=== PATIENT | female | born 1935 | race Caucasian/White ===

== ENCOUNTER → 2016-09-29 | Outpatient (CLI) | payer MEDICARE | END | disposition home or self-care (01) | LOC: PCVCCLINIC 14:57 | PROVIDERS: ATTEND Internal Medicine | DX: I25.10 Atherosclerotic heart disease of native coronary artery without angina pectoris (principal); I42.9 Cardiomyopathy, unspecified; E78.5 Hyperlipidemia, unspecified; I10 Essential (primary) hypertension; I65.29 Occlusion and stenosis of unspecified carotid artery; I47.2 Ventricular tachycardia; I44.7 Left bundle-branch block, unspecified; I48.0 Paroxysmal atrial fibrillation; Z95.810 Presence of automatic (implantable) cardiac defibrillator | CPT/HCPCS: 80061; 93005; G0463 ==

== ENCOUNTER → 2017-05-12 | Outpatient (CLI) | payer MEDICARE ==
[~2017-05-12] MED LIST: NITROGLYCERIN SUBLINGUAL 0.4 MG BOTTLE OF 25. SL ONE; REGADENOSON 0.4 MG/5 ML DISP.SYRIN. IV ONE
--- NOTE | 2017-05-16 09:33 | PCVCIMAG ---
APPROVED REPORT Exam: Nuclear Stress Test Indication: CAD , Dyspnea, Dyspnea upon Exertion, Paroxysmal Atrial Fibrillation, Cardiomyopathy, LBBB Patient Location: Out-Patient Stress Nurse: Soledad Yu RN, Afshan Taylor RN NM Tech:Sue ArzateJANELL stubbsMT Ht: 5 ft 4 in Wt: 135 lbs BSA: 1.66 m2 HR: 82 bpm BP: 192/81 mmHg BMI: 23.1 Rhythm: Pacemaker Medical History Medical History: HTN, CVD, CAD, AGE Medications: Coreg (held 24 hours) ASA, Lasix, Lipitor, Plavix, Protonix, Synthroid Allergies: Iodine Pretest Chest Pain Characteristics: No chest pain NM EXAM: Myocardial Perfusion REST/STRESS Imaging Protocol: Rest Tc-99m/Stress Tc-99m 1 day Resting Data Rest SPECT myocardial perfusion imaging was performed in supine position 45 minutes following the intravenous injection of 7.1 mCi of Tc-99m Sestamibi. Time of rest injection: 1045 Date: 05/12/2017 Administration Route: IV Administration Site: Right AC Pharmacologic Stress Pharmacologic stress test was performed by injecting Regadenoson 0.4 mg IV push followed by the intravenous injection of 24.3 mCi of Tc-99m Sestamibi. Time of stress injection: 1215 Date: 05/12/2017 Administration Route: IV Administration Site: Right AC Gated Stress SPECT was performed 45 minutes after stress injection. The images were gated to evaluate regional wall motion and calculate left ventricular ejection fraction. Study Quality Study: Good Study Data Post stress, the left ventricular ejection was 60%.. SSS: 0 SRS: 4 SDS: 0 TID = 0.89. Perfusion No evidence of stress induced ischemia or prior myocardial infarction. Wall Motion Normal left ventricular size and function with no regional wall motion abnormalities. Nuclear Conclusion No evidence of stress induced ischemia or prior myocardial infarction. Normal left ventricular size and function with no regional wall motion abnormalities. Post stress, the left ventricular ejection was 60%.. No prior study available for comparison. Interpreted by: Galileo David MD Electronically Approved: 05/12/2017 16:33:50 Stress Test Details Stress Test: Pharmacologic stress testing performed using 0.4 mg of regadenoson per 5 mL given IV over 10 seconds. Reason for pharmacologic stress test: physical limitation. HR Resting HR: 82 bpmMax Heart Rate (APMHR): 139 bpm Max HR Achieved: 108 bpmTarget HR (85% APMHR): 118 bpm % of APMHR: 77 Recovery HR: 104 bpm BP Resting BP: 192/81 mmHg Max BP: 199/91 mmHg BP response to stress: Coreg held this am, patient took home dose after stress test ECG Resting ECG: Paced Rhythm Stress ECG: Paced Rhythm Arrhythmia: None Recovery ECG: Paced Rhythm Clinical Reason for Termination: Completed protocol Stress Symptoms: Dyspnea, Nausea Exercise duration: 0 min 55 sec Exercise capacity: 1.0 METs Angina Score: None Symptoms resolved during recovery. Stress ECG Conclusion Non-diagnostic stress due to underlying ventricular pacing. <Conclusion> Non-diagnostic stress due to underlying ventricular pacing.
== END | disposition home or self-care (01) ==
LOC: PCVCIMAG 10:02
PROVIDERS: ATTEND Internal Medicine
DX: I25.10 Atherosclerotic heart disease of native coronary artery without angina pectoris (principal); I48.0 Paroxysmal atrial fibrillation; I42.9 Cardiomyopathy, unspecified; I44.7 Left bundle-branch block, unspecified; K52.9 Noninfective gastroenteritis and colitis, unspecified; Z86.73 Personal history of transient ischemic attack (TIA), and cerebral infarction without residual deficits
CPT/HCPCS: 78452; 93017; A9500; J2785

== ENCOUNTER → 2017-05-17 | Outpatient (CLI) | payer MEDICARE ==
--- NOTE | 2017-05-17 15:36 | PCVCIMAG ---
APPROVED REPORT Indications Stenosis Risk Factors Hypertension: Hyperlipidemia Doppler Spectral Velocity Analysis PSV / EDVPSV / EDV ECA (R) 63 / 6 cm/sECA (L) 83 / 8 cm/s dICA (R) 78 / 21 cm/sdICA (L) 85 / 30 cm/s Lynne (R) 58 / 19 cm/smICA (L) 43 / 15 cm/s pICA (R) 56 / 13 cm/spICA (L) 52 / 12 cm/s Bulb (R) 47 / 12 cm/sBulb (L) 50 / 10 cm/s dCCA (R) 57 / 12 cm/sdCCA (L) 72 / 19 cm/s mCCA (R) 53 / 13 cm/smCCA (L) 87 / 14 cm/s Vert (R) 49 / 13 cm/sVert (L) 54 / 13 cm/s ICA/CCA 1.37 ICA/CCA 0.99 Basic Measurements Blood Pressure: Pulses: Right Left RightLeft Brachial(Sitting) 136/98pbWb889/86mmHgTemporal Real Time B-Mode Imaging Vert. (R)AntegradeVert. (L)Antegrade Findings The right carotid bulb has moderate calcified plaque. The right proximal internal carotid artery shows <40% stenosis. The right common carotid artery shows no significant stenosis. The right external carotid artery shows no significant stenosis. The left carotid bulb has mild plaque. The left proximal internal carotid artery shows no significant stenosis. The left common carotid artery shows no significant stenosis. The left external carotid artery shows no significant stenosis. Conclusion 1. Right internal carotid artery stenosis (<40%) 2. Left internal carotid plaquing 3. Antegrade vertebral flow
--- NOTE | 2017-05-17 16:45 | PCVCIMAG ---
APPROVED REPORT Study performed: 05/17/2017 14:45:21 EXAM: Comprehensive 2D, Doppler, and color-flow Echocardiogram Patient Location: Echo lab Status: routine BSA: 1.68 HR: 71 bpmBP: 138/86 mmHg Rhythm: LBBB Other Information Study Quality: Adequate Indications Abnormal ECG Pacemaker CAD Cardiomyopathy S/P STENTS, NOMISCHEMIC CARDIOMYOPATHY, DEFIBRILLATOR PM 2D Dimensions LVEF(%): 61.80 (>50%) IVSd: 11.14 (7-11mm)LVOT Diam: 20.45 (18-24mm) LVDd: 42.67 mm PWd: 11.09 (7-11mm)Ascending Ao: 31.77 (22-36mm) LVDs: 28.61 (25-40mm) Left Atrium: 29.09 (27-40mm) Aortic Root: 24.86 mm LV Single Plane 4CH: 44.30 % LV Single Plane 2CH: 53.08 %Mercer's LVEF: 48.69 % Biplane EF: 48.9 % Volumes Left Atrial Volume (Systole) Single Plane 4CH: 34.31 mLSingle Plane 2CH: 35.26 mL Biplane LA Volume: 37.00 mLLA ESV Index: 22.00 mL/m2 Aortic Valve AoV Peak Juanpablo.: 1.34 m/s AO Peak Gr.: 7.23 mmHgLVOT Max P.22 mmHg LVOT Max V: 0.95 m/s DICK Vmax: 2.34 cm2 Mitral Valve E/A Ratio: 0.8 MV Decel. Time: 121.02 ms MV E Max Juanpablo.: 0.70 m/s MV A Juanpablo.: 0.86 m/s IVRT: 107.27 ms TDI E/Lateral E': 14.00E/Medial E': 17.50 Medial E' Juanpablo.: 0.04 m/s Lateral E' Juanpablo.: 0.05 m/s Pulmonary Valve PV Peak Juanpablo.: 1.11 m/sPV Peak Gr.: 4.94 mmHg Pulmonary Vein P Vein S: 0.40 m/sP Vein A: 0.35 m/s P Vein D: 0.27 m/sP Vein A Dur.: 86.5 msec P Vein S/D Ratio: 1.48 Tricuspid Valve TR Peak Juanpablo.: 2.43 m/s TR Peak Gr.: 23.65 mmHg TV Vmax: 0.61 m/sPA Pressure: 32.00 mmHg Left Ventricle The left ventricle is normal size. There is normal LV segmental wall motion. Mild concentric left ventricular hypertrophy. Left ventricular systolic function is normal. The left ventricular ejection fraction is within the normal range. LVEF is 60-65%. Grade I - abnormal relaxation pattern. Right Ventricle The right ventricle is normal size. The right ventricular systolic function is normal. Atria The left atrium size mildly dilated Pacemaker lead is present in the right atrium. Aortic Valve The aortic valve is trileaflet, minimally sclerotic No aortic regurgitation is present. There is no aortic valvular stenosis. Mitral Valve The mitral valve is normal in structure. Mild mitral regurgitation. No evidence of mitral valve stenosis. Tricuspid Valve The tricuspid valve is normal in structure. Trace to mild tricuspid regurgitation. Pulmonic Valve The pulmonary valve is normal in structure. There is no pulmonic valvular regurgitation. Great Vessels The aortic root is normal in size. The ascending aorta is normal in size. IVC is normal in size and collapses with >50% inspiration Pericardium There is no pericardial effusion. There is no pleural effusion. <Conclusion> Left ventricular systolic function is normal. There is normal LV segmental wall motion. LVEF is 60-65%. Grade I diastolic dysfunction The left atrium size mildly dilated. Pacing wires in right heart The aortic valve is trileaflet, minimally sclerotic. No aortic regurgitation or stenosis The mitral valve is normal in structure. Mild mitral insufficiency There is no pericardial effusion.
== END | disposition home or self-care (01) ==
LOC: PCVCIMAG 14:10
PROVIDERS: ATTEND Internal Medicine
DX: I08.1 Rheumatic disorders of both mitral and tricuspid valves (principal); I44.7 Left bundle-branch block, unspecified; I25.10 Atherosclerotic heart disease of native coronary artery without angina pectoris; R94.31 Abnormal electrocardiogram [ECG] [EKG]; I48.91 Unspecified atrial fibrillation; E78.5 Hyperlipidemia, unspecified; I77.89 Other specified disorders of arteries and arterioles; I65.23 Occlusion and stenosis of bilateral carotid arteries; I10 Essential (primary) hypertension; Z95.810 Presence of automatic (implantable) cardiac defibrillator
CPT/HCPCS: 93284; 93306; 93880; G0463; 78452; 93017; A9500

== ENCOUNTER → 2017-12-01 | Outpatient (CLI) | payer MEDICARE | END | disposition home or self-care (01) | LOC: PCVCCLINIC 15:12 | DX: I50.32 Chronic diastolic (congestive) heart failure (principal); I25.10 Atherosclerotic heart disease of native coronary artery without angina pectoris; I42.9 Cardiomyopathy, unspecified; I65.23 Occlusion and stenosis of bilateral carotid arteries; I48.0 Paroxysmal atrial fibrillation; E78.2 Mixed hyperlipidemia; Z95.810 Presence of automatic (implantable) cardiac defibrillator; Z79.899 Other long term (current) drug therapy | CPT/HCPCS: 93005; G0463 ==